=== PATIENT | female | born 1950 | race Caucasian/White ===

== ENCOUNTER 2016-08-18 14:49 | Inpatient (IN) | payer OTHER, MEDICARE, BC ==
--- NOTE | ~2016-08-18 | DS ---
Discharge Summary [facility] [address] [facility] [place] [address] NAME: LORIEGREGORYA JACQUE : 50 STATUS : DIS IN PAT#: [id number] AGE: 65 ADM/REG DATE : 08/18/16 MR#: [id number] REPORT SERV DATE: 08/20/16 DICTATED BY: TOBIN BLUM DATE: 08/19/16 REPORT STATUS : Draft TRANSCRIBED BY: MODL DATE: 08/19/16 ADMISSION DATE: 08/18/2016 DISCHARGE DATE: 08/19/2016 DISCHARGE DIAGNOSES: 1. Persistent cough and respiratory wheezing, likely related to post pneumonia tussive syndrome. 2. Hypertension. 3. Minimal left-sided pleural effusion. 4. Obstructive sleep apnea, on CPAP. 5. Hypothyroidism. 6. Hyperlipidemia. 7. History of transient ischemic attack. 8. Osteoporosis. CONSULTANTS: None. PROCEDURES: None. HOSPITAL COURSE: This is a 65-year-old lady who was directly admitted to our facility from Dr. Mondragon's office due to persistent cough and shortness of breath as well as respiratory wheezing. For details, please refer to my own H and P dated 08/18/2016. In summary, the patient was admitted with concerns for persistent ongoing pneumonia, possibly an HCAP. The patient was admitted and was started on broad-spectrum antibiotics as well as IV steroids. By the next morning, the patient was found to have a very benign chest x-ray findings as well as benign lab findings. The patient's white blood cell count was 13, which trended down to 12 without much of any left shift. Also symptomatically, the patient had a very obvious and significant improvement with IV steroids. Therefore, it was felt that the patient was probably suffering from post pneumonia tussive syndrome and with residual inflammation causing respiratory wheezing. The patient is Dr. Melo's mother and I have spoke with Dr. Melo and eli, and it was decided that the patient should get a surveillance CT of the chest since the patient was found to have pleural effusion on a CT scan that was not found on a chest x-ray, previously just couple of weeks ago. CT of the chest was performed, and it showed minimal left-sided pleural effusion, which likely represent a resolving pleural effusion from before. Throughout the entire hospital stay, the patient was hemodynamically stable, and the patient did not require any oxygen. It is believed that the patient will be better served at home with symptomatic control as she gets over her acute illness. Dr. Melo agreed and patient is now being discharged home to be followed as an outpatient closely. DISCHARGE MEDICATIONS: The only changes to her medication is a course of prednisone 40 mg p.o. daily x5 days. DISPOSITION: Discharged to home. FOLLOWUP: Please follow up with PCP in the next one to two weeks. Discharge Summary [address] [address] NAME: NANDO MELO : 50 STATUS : DIS IN PAT#: [id number] AGE: 65 ADM/REG DATE : 08/18/16 MR#: [id number] REPORT SERV DATE: 08/20/16 DICTATED BY: TOBIN BLUM DATE: 08/19/16 REPORT STATUS : Draft TRANSCRIBED BY: MARIO DATE: 08/19/16 A total of 30 minutes spent in coordinating this patient's discharge today. [facility] [place]IO Tobin Blum MD / [id number] CC: MD Sherwin Bermudez
--- NOTE | ~2016-08-18 | HP ---
History And Physical [address] [address] NAME: NANDO MELO : 50 STATUS : ADM IN [facility]#: [id number] AGE: 65 ADM/REG DATE : 08/18/16 MR#: [id number] REPORT SERV DATE: 08/18/16 DICTATED BY: TOBIN BLUM DATE: 08/18/16 REPORT STATUS : Draft TRANSCRIBED BY: MODL DATE: 08/18/16 DATE OF ADMISSION: 08/18/2016 CHIEF COMPLAINT: A persistent cough and shortness of breath. HISTORY OF PRESENT ILLNESS: This is a 65-year-old lady of Dr. Melo's mother with history of hypertension, obstructive sleep apnea, hypothyroidism amongst many other medical conditions, presenting with a persistent cough and shortness of breath. The patient has actually gotten sick since 07/25/2016. The patient was actually admitted to a small local hospital in [place] for a couple days before she was transferred to a bigger medical center in [place]. The patient was treated for a pneumonia, and also at that time, the patient was found to have a left-sided pleural effusion that was apparently too small to be drained. All in all, the patient has been maintained on different antibiotics, but namely Levaquin up until about a week ago. The patient had been home for about a week, and at home, the patient continued to suffer from persistent cough and shortness of breath. The patient really did not have any fevers or chills and the cough is productive only of clear sputum. The patient was seen at her PCP's office today, who was concerned that the patient was still having persistent cough and shortness of breath. Transfer request was made for admission of the patient to our facility for further evaluation and care. REVIEW OF SYSTEMS: The patient did not have any fevers or chills, but the patient did have persistent cough and shortness of breath. Otherwise, 14-point review of systems reviewed and negative other than mentioned above. MEDICATIONS: 1. Fosamax 70 mg p.o. every seven days. 2. Vitamin D3 of 5000 units p.o. q.h.s. 3. Aggrenox 200/25 one tab p.o. b.i.d. 4. Doxepin 6 mg p.o. q.h.s. 5. Synthroid 100 mcg p.o. daily. 6. Claritin 10 mg p.o. q.h.s. 7. Melatonin 10 mg p.o. q.h.s. 8. Toprol 25 mg p.o. at bedtime. 9. Centrum one tab p.o. daily. 10.Pravachol 40 mg p.o. q.h.s. ALLERGIES: NKDA. PAST MEDICAL HISTORY: 1. Hypothyroidism. 2. Hypertension. 3. Hyperlipidemia. 4. History of TIA. 5. Obstructive sleep apnea, on CPAP. 6. Osteoporosis. History And Physical [address] [address] NAME: NANDO MELO : 50 STATUS : ADM IN [facility]#: [id number] AGE: 65 ADM/REG DATE : 08/18/16 MR#: [id number] REPORT SERV DATE: 08/18/16 DICTATED BY: TOBIN BLUM DATE: 08/18/16 REPORT STATUS : Draft TRANSCRIBED BY: MARIO DATE: 08/18/16 PAST SURGICAL HISTORY: 1. Cholecystectomy. 2. Bilateral tubal ligation. 3. Foot surgeries. 4. Wrist surgeries. FAMILY HISTORY: Coronary artery disease. SOCIAL HISTORY: The patient does not smoke, drink alcohol, or use any illicit drugs. 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 The patient is and lives at home with her who is at bedside during with my encounter with the patient. The patient is Dr. Alden Melo's mother, who is a local primary care provider. PHYSICAL EXAMINATION: VITAL SIGNS: Temperature 98.9, blood pressure 121/67, pulse 117, respiratory rate is 16, and saturating 94% on room air. NEUROLOGIC: The patient is alert and oriented x3 with no focal neurologic deficits. GENERAL: The patient is awake, does not appear to be in acute distress, and she is cooperative. NECK: No JVD. No lymphadenopathy. Normal thyroid. CHEST: No midline sternotomy scar and no tenderness to palpation. LUNGS: The patient has diffuse wheezes across all lung hussein bilaterally. The patient, otherwise has normal respiratory effort on room air, and she is able to speak in full sentences without getting too short of breath. CARDIOVASCULAR: The patient is tachycardic, but otherwise no murmurs, rubs, or gallops and PMI is nondisplaced. ABDOMEN: Soft, nontender, with good bowel sounds and no organomegaly. EXTREMITIES: No edema. Normal distal pulses. No calf tenderness. SKIN: Clean, dry, warm, and intact. LABORATORY DATA: There are no labs since the patient was directly admitted. Looking echocardiogram done earlier about a month ago showed a normal ejection fraction. Notably though the echocardiogram study itself was of very poor quality. CT of the chest performed two weeks ago on 08/04/2016 showed a moderate left pleural effusion, but otherwise did not mention anything about pneumonia or pulmonary embolism. ASSESSMENT AND PLAN: This is a 65-year-old lady with history of hypertension, sleep apnea, hypothyroidism amongst many other medical conditions, presenting with persistent cough and shortness of breath. 1. Persistent cough and shortness of breath with respiratory wheezing. The patient had questionable pneumonia that she was treated for as well as a left-sided pleural effusion that was not drained. 2. Hypertension. History And Physical [address] [address] NAME: NANDO MELO : 50 STATUS : ADM IN [facility]#: [id number] AGE: 65 ADM/REG DATE : 08/18/16 MR#: [id number] REPORT SERV DATE: 08/18/16 DICTATED BY: TOBIN BLUM DATE: 08/18/16 REPORT STATUS : Draft TRANSCRIBED BY: MARIO DATE: 08/18/16 3. Obstructive sleep apnea, on CPAP. 4. Hypothyroidism. 5. Hyperlipidemia. 6. History of transient ischemic attack. 7. Osteoporosis. PLAN: My plan is to admit the patient under telemetry monitoring. The patient will be given oxygen support and bronchodilator therapy. I will empirically cover the patient with vancomycin and cefepime for healthcare-associated pneumonia. The patient will also be given IV steroids given the extensive wheezes. I will also go ahead and check labs to include CBC and CMP. I will also complete infectious workup with cultures checking of procalcitonin level. Since I do not have any imaging studies, I will check a chest x-ray. Also, based on EKG and lab findings, I will consider rechecking an echocardiogram since the previous one was of very poor quality. Otherwise, for the rest of stable past medical conditions including hypertension, hypothyroidism, hyperlipidemia, et al., I will continue home medications. Standard DVT prophylaxis. The patient is full code at this time. [facility] Tobin Blum MD / [id number] CC: MD ALEXA Bermudez FREDRICK S
[2016-08-18] MEDS ORDERED: FOSAMAX70 MG PO (15:36)
[2016-08-18] MEDS ORDERED: VITAMIN D31000 UNIT PO (15:37)
[2016-08-18] MEDS ORDERED: CENTRUM PO (15:37)
[2016-08-18] MEDS ORDERED: SYN1 PO (15:38)
[2016-08-18] MEDS ORDERED: MELATONIN5 M1 PO (15:38)
[2016-08-18] MEDS ORDERED: CLARIT10 PO (15:39)
[2016-08-18] MEDS ORDERED: AGGRENOX PO (15:40)
[2016-08-18] MEDS ORDERED: TOPXL25 PO (15:42)
[2016-08-18] MEDS ORDERED: PRAVACHOL40 MG PO (15:42)
[2016-08-18] MEDS ORDERED: DOX10 PO (15:44)
[2016-08-18 18:03] LABS: BASOPHILS 0.2 %; BASOPHILS ABSOLUTE 0.02 10/3/uL (0.0-0.16); EOSINOPHILS 0.2 %; EOSINOPHILS ABSOLUTE 0.03 10/3/uL (0.0-0.53); HEMATOCRIT 35.5 % (36.0-48.0); HEMOGLOBIN 11.5 g/dL (12.0-16.0); IMMATURE GRANULOCYTES 0.2 %; IMMATURE GRANULOCYTES ABSOLUTE 0.03 10/3/uL (0.0-0.11); LYMPHOCYTES 19.2 %; MEAN CORPUS HGB CONC 32.4 g/dL (32.0-36.0); MEAN CORPUSCULAR HEMOGLOB 29.9 pg (26.0-34.0); MEAN CORPUSCULAR VOLUME 92.2 fL (80-100); MEAN PLATELET VOLUME 9.4 fL (9.2-13.0); MONOCYTES 11.5 %; MONOCYTES ABSOLUTE 1.49 10/3/uL (0.21-1.20); NEUTROPHILS 68.7 %; NEUTROPHILS ABSOLUTE 8.92 10/3/uL (2.02-8.40); PLATELET COUNT 394 10/3/uL (150-400); RBC DISTRIBUTION WIDTH 13.8 % (12.0-16.0); RED CELL COUNT 3.85 10/6/uL (4.0-5.6)
[2016-08-18 18:06] LABS: MANUAL DIFF NO %
[2016-08-18 18:24] LABS: A/G RATIO 0.4 (0.7-1.9); ALBUMIN 2.5 G/DL (3.5-5.0); ALKALINE PHOSPHATASE 72 U/L (45-117); BUN (BLOOD UREA NITROGEN) 10 MG/DL (6-23); CALCIUM, SERUM 9.3 MG/DL (8.5-10.4); CHLORIDE, SERUM 103 MMOL/L (96-112); CO2 (CARBON DIOXIDE) 31 MMOL/L (24-34); CREATININE 0.94 MG/DL (0.55-1.02); GFR AFRICAN AMERICAN 74 ML/MIN (>=60); GFR NON AFRICAN AMERICAN 64 ML/MIN (>=60); GLOBULIN 5.7 G/DL (2.5-4.1); GLUCOSE, SERUM 94 MG/DL (60-99); POTASSIUM, SERUM 4.5 MMOL/L (3.5-5.3); SGOT(AST) 10 U/L (5-40); SGPT(ALT) 16 U/L (5-65); SODIUM, SERUM 140 MMOL/L (135-148); TOTAL BILIRUBIN 0.4 MG/DL (0-1.2); TOTAL PROTEIN 8.2 G/DL (6.0-8.5); TROPONIN I <0.02 NG/ML (<0.05)
[2016-08-18 18:45] LABS: PROCALCITONIN 0.08 ng/mL (<0.5)
[2016-08-19 05:52] LABS: BASOPHILS 0.1 %; BASOPHILS ABSOLUTE 0.01 10/3/uL (0.0-0.16); EOSINOPHILS 0 %; HEMOGLOBIN 11.5 g/dL (12.0-16.0); IMMATURE GRANULOCYTES 0.3 %; IMMATURE GRANULOCYTES ABSOLUTE 0.04 10/3/uL (0.0-0.11); LYMPHOCYTES ABSOLUTE 1.08 10/3/uL (0.67-4.30); MEAN CORPUS HGB CONC 31.9 g/dL (32.0-36.0); MEAN CORPUSCULAR HEMOGLOB 29.1 pg (26.0-34.0); MEAN CORPUSCULAR VOLUME 91.1 fL (80-100); MEAN PLATELET VOLUME 9.4 fL (9.2-13.0); MONOCYTES 2.3 %; MONOCYTES ABSOLUTE 0.28 10/3/uL (0.21-1.20); NEUTROPHILS 88.3 %; NEUTROPHILS ABSOLUTE 10.61 10/3/uL (2.02-8.40); PLATELET COUNT 405 10/3/uL (150-400); RBC DISTRIBUTION WIDTH 13.7 % (12.0-16.0); RED CELL COUNT 3.95 10/6/uL (4.0-5.6)
[2016-08-19 06:03] LABS: MANUAL DIFF NO %
[2016-08-19 06:07] LABS: BUN (BLOOD UREA NITROGEN) 12 MG/DL (6-23); CALCIUM, SERUM 8.6 MG/DL (8.5-10.4); CHLORIDE, SERUM 106 MMOL/L (96-112); CO2 (CARBON DIOXIDE) 27 MMOL/L (24-34); CREATININE 0.84 MG/DL (0.55-1.02); GFR AFRICAN AMERICAN 85 ML/MIN (>=60); GFR NON AFRICAN AMERICAN 73 ML/MIN (>=60); GLUCOSE, SERUM 173 MG/DL (60-99); POTASSIUM, SERUM 4.6 MMOL/L (3.5-5.3); SODIUM, SERUM 141 MMOL/L (135-148)
[2016-08-19] MEDS ORDERED: PROAIR HFA INH (10:56)
[2016-08-19] MEDS ORDERED: NORCO1 TA1 PO (10:56)
[2016-08-19] MEDS ORDERED: LEVAQUIN750 MG PO (10:57)
[2016-08-19] MEDS ORDERED: P10 PO (16:44)
== END 2016-08-19 18:34 | disposition home or self-care (01) | DRG 204 ==
LOC: 4SO 14:49
PROVIDERS: Internal Medicine
DX: R05 Cough (principal); J90 Pleural effusion, not elsewhere classified; I10 Essential (primary) hypertension; E03.9 Hypothyroidism, unspecified; E78.5 Hyperlipidemia, unspecified; Z86.73 Personal history of transient ischemic attack (TIA), and cerebral infarction without residual deficits; G47.33 Obstructive sleep apnea (adult) (pediatric); M81.0 Age-related osteoporosis without current pathological fracture; Y95 Nosocomial condition
CPT/HCPCS: 71010; 71260; 80048; 80053; 83036; 84145; 84443; 84484; 85025; 87040; 93005; A9270-GY; J0692; J2920; J3370; Q9967